=== PATIENT | female | born 1985 | race Caucasian/White ===

== ENCOUNTER → 2020-03-16 08:11 | Outpatient (CLI) | payer OTHER, SELFPAY ==
[2020-03-15 18:04] VITALS: BMI 38.9
[2020-03-16 13:44] LABS: Amphetamine Urine VISTA NEGATIVE (<1000 ng/mL); Barbiturate Urine VISTA NEGATIVE (< 200 ng/mL); Benzodiazepine Urine VISTA NEGATIVE (< 200 ng/mL); Cocaine Urine VISTA NEGATIVE (< 300 ng/mL); Ecstacy Urine VISTA NEGATIVE (< 500 ng/mL); Methadone Urine VISTA NEGATIVE (< 300 ng/mL); PCP Urine VISTA NEGATIVE (< 25 ng/mL); THC Urine VISTA NEGATIVE (< 50 ng/mL); Vista UDS pH Range 5
== END ==
PROVIDERS: PCP Internal Medicine; Referring Provider Internal Medicine; Visit Provider Internal Medicine
DX: F90.9 Attention-deficit hyperactivity disorder, unspecified type (principal)
CPT/HCPCS: 80307

== ENCOUNTER 2020-10-12 05:48 | Day surgery (SDC) | payer OTHER, SELFPAY ==
[2020-03-15 18:04] VITALS: BMI 38.9
[2020-10-12 06:13] LABS: Internal QC Validated? YES +Cl - CLEAR BKGD; Pregnancy, Urine Negative Negative
[2020-10-12 06:15] VITALS: BP 125/71; PULSE 98; RESP 16; TEMP 36.4; O2SAT 99; BMI 38.9
[2020-10-12] MEDS: Lactated Ringers 1,000 ML 100 ML IV (06:26)
--- NOTE | 2020-10-12 07:30 | LIP_PTH ---
[facility]: [facility] [place] U#:[id number] AGE/SX: 35/F ROOM: RE10/12/[address]: Dr. Alejandro Delgado MD : 1985 BED: DIS: 10/12/2020 SPEC #: [id number] RECD: 10/12/20 12:43 STATUS: ERESE TO #: [id number] MERLY: 10/12/20 07:[address]: Alejandro Delgado DEPT: SURGICAL PATHOLOGY RECD BY: Allen Barclay ENTERED: 10/12/20 13:51 SP TYPE: LIPOMA OTHR DR: Dr. Pedro Pablo Mark MD Tissues: Soft tissues, NOS Procedures: Surgery Specimen Level III HEADER OPERATION: Excision tumor, soft tissue face/scalp, neck PRE-OP DIAGNOSIS: Benign lipomatous neoplasm of skin and subcutaneous tissue of head, face and neck TISSUE SUBMITTED: Lipoma of neck MICROSCOPIC DIAGNOSIS Lipoma of neck, excision: Mature adipose tissue, consistent with lipoma. See comment. KATRINA:keyur 10/16/2020 COMMENT Fragments of skeletal muscle tissue are also noted adjacent to the lesion. MICROSCOPIC DESCRIPTION Slides are reviewed. GROSS DESCRIPTION Received in fixative is one container labeled with the patient's name and designated lipoma of neck. The specimen consists of an irregular piece of adipose tissue measuring 8.5 x 5.5 x 3 cm. The external surface is inked. Sections reveal yellow adipose cut surfaces without areas of hemorrhage, necrosis or cystic degeneration. Catalogue Maker sections are submitted in four cassettes. / KATRINA:keyur 10/12/20 TC:1 CPT: 57721
[2020-10-12] MEDS: Lidocaine 1% /Epi 1:100 (20ml) 20 ML Vial (08:30)
[2020-10-12] MEDS: Bacitracin 500 UNITS/GM PACKET (08:45)
--- NOTE | 2020-10-12 08:52 | PCM.OPRPT ---
Problems Associated Problem List Diagnoses (1) Lipoma of neck: Report of Operation Date of Procedure: 10/12/20 Pre-Operative Diagnosis: Lipoma left posterior neck Post-Operative Diagnosis: Same Surgery/Procedure Performed:: Excision of lipoma left posterior neck extending deep to trapezius and sternocleidomastoid muscles Description of Surgical Findings:: Rae is a 35-year-old female who presents with a an uncomfortable large lipoma of the left posterior neck. She was desirous of removal for relief and this was offered given the large size of the lesion although a benign lipoma was chiefly suspected. The risks, alternatives, potential complications, and benefits were discussed at length and any questions answered to the patient and/or caregiver's satisfaction. Witnessed informed consent was obtained in the office, and the patient and/or caregiver was agreeable to proceed. Procedure went as follows: The patient was then applied the preoperative holding and the left neck site marked in accordance with the chart notes, patient history, and exam. The patient was then brought to the operating room and local anesthetic of 1% lidocaine with 100,000 epinephrine was then injected of the planned incision site for a total of 10 mL. The patient was then positioned in the incisional site prepped and draped in usual sterile fashion. Using a 15 blade scalpel, a 4 cm incision was then made overlying the palpable mass. The platysma was then sharply transected and the wound edges cauterized with bipolar cautery for hemostasis. The posterior branches of the greater auricular nerve were identified and preserved. Dissection deep revealed a large lipoma within a fibrous capsule extending posterior to the sternocleidomastoid and deep to the trapezius muscle. This was then dissected free using a combination of bipolar cautery and blunt finger dissection revealing a very large 6 x 6 x 10 cm lipoma. Given the large size this was somewhat of a challenge to deliver through the 4 cm skin incision however with gentle retraction and external impression this was able to be delivered through the incision where bipolar cautery was used to free it from its fibrous attachments to the trapezius muscle posteriorly. The specimen was then sent for pathologic evaluation. Minimal bleeding from the wound site was then noted and this was then closed deeply with interrupted 3-0 Vicryl sutures followed by running 5-0 Monocryl suture to close the skin wound. This completed the procedure and the patient was returned to recovery having tolerated the procedure well. Surgeon: Alejandro Delgado Type of Anesthesia: Local Specimen's removed: lipoma neck Drains: none Estimated Blood Loss (mL): 5 mL Fluids Replaced: 0 mL Grafts/Implants Used: none Complications none Admit VTE Documentation VTE Present on Admission: No VTE Mechan Device Prophylaxis: None VTE Pharm Prophylaxis ordered?: No Reason prophylaxis not ordered:: Procedure Not Indicated
--- NOTE | 2020-10-12 08:58 | PCM.DC ---
Discharge Instructions Diet Discharge Diet: No restrictions Activity Discharge Activity: Return to Normal Activity May shower in (days): 2 Weight Bearing Status: Weight bearing as tolerated Dressing / Incision Call your doctor if your incision/area has: Increased Pain/ Swelling and Increased Redness Call your doctor if you observe: Fever of 101 or Higher and Uncontrolled pain Follow Up Care Please Follow Up With: Alejandro Delgado MD When: 1 week Test Results: Test results from this visit will be discussed in further detail at your follow-up appointment, if applicable. Discharge Plan Admission Attending Provider: Alejandro Delgado Primary Care Provider: Pedro Pablo Mark Discharge Orders/Prescriptions Prescriptions: No Action valacyclovir 500 mg tablet 500 mg PO DAILY RF: 0 Mirena 20 mcg/24 hours (5 yrs) 52 mg intrauterine device 1 device intrauterine ONCE RF: 0 clobetasol 0.05 % cream 1 applic TOPICAL BID PRN (Reason: Psoriasis) 0 Days Qty: 60 RF: 1 paroxetine HCl [Paxil] 10 mg tablet 10 mg PO DAILY Qty: 90 RF: 3 Referrals / Follow Up: Pedro Pablo Mark MD [Primary Care Provider] - Disposition Discharge Orders: Discharge Patient (Routine); Ordered 10/12/20 Ordered By: Dr. Alejandro Delgado
[2020-10-12 09:31] VITALS: BP 125/71; BP 142/92; PULSE 99; RESP 16; TEMP 36.3; O2SAT 97
[2020-10-12 14:21] VITALS: BP 103/72; BP 108/62; BP 109/65; BP 110/59; BP 110/64; BP 111/68; BP 114/67; BP 116/76; BP 117/63; BP 118/70; BP 120/55; BP 120/68; BP 123/81; BP 128/93; O2SAT 95; O2SAT 96; O2SAT 97; O2SAT 98
== END 2020-10-12 09:20 ==
LOC: SDC 05:48 → AC 05:48
PROVIDERS: Anesthesiology; PCP Family Medicine; Referring Provider Otolaryngology; Visit Provider Otolaryngology
PROC: (CPT 21554; principal; 2020-10-12 07:15)
DX: D17.0 Benign lipomatous neoplasm of skin and subcutaneous tissue of head, face and neck (principal); Z87.891 Personal history of nicotine dependence; G47.30 Sleep apnea, unspecified; H91.90 Unspecified hearing loss, unspecified ear
CPT/HCPCS: 21554; 81025; 87426; 88304; C9803; J7120; A4216

== ENCOUNTER 2021-01-10 13:00 | Outpatient (RCR) | payer OTHER, SELFPAY ==
[2020-12-17 13:40] VITALS: BMI 38.9
== END 2021-01-15 23:59 ==
LOC: DC 13:00
PROVIDERS: PCP Family Medicine; Visit Provider Clinical Nurse Specialist
DX: E11.9 Type 2 diabetes mellitus without complications (principal)
CPT/HCPCS: 97802; G0108

== ENCOUNTER 2021-02-07 13:00 | Outpatient (RCR) | payer OTHER, SELFPAY ==
[2021-01-16 00:17] VITALS: BMI 38.9
== END 2021-02-14 23:59 ==
LOC: DC 13:00
PROVIDERS: PCP Internal Medicine; Visit Provider Clinical Nurse Specialist
DX: E11.9 Type 2 diabetes mellitus without complications (principal)
CPT/HCPCS: 97803; G0108

== ENCOUNTER → 2021-02-22 08:48 | Outpatient (CLI) | payer OTHER, SELFPAY ==
[2021-02-22 12:55] LABS: Vitamin B12 > 2000 pg/mL (211-911)
[2021-02-22 12:59] LABS: ALB/GLOB Ratio 0.8 RATIO (0.9-2.4); AST(SGOT) 37 U/L (15-37); Alanine Aminotransfer ALT/SGPT 59 U/L (13-56); Albumin, Serum 3.4 g/dL (3.2-5.0); Alkaline Phosphatase 126 U/L (45-117); Anion Gap 5 (5-15); BUN 9 mg/dL (7-18); BUN/Creat Ratio 14.4 RATIO (10-20); Calcium,Total 8.4 mg/dL (8.5-10.1); Chloride 109 mmol/L (98-107); Cholesterol 123 mg/dL (200); Creatinine, Serum 0.62 mg/dL (0.55-1.02); EST Glomerular Filtration Rate 115 mL/min (>60); Est Glom Filt Rate - Afr Amer 139 mL/min (>60); Ferritin 214 ng/mL (8-252); Glucose 90 mg/dL (74-106); High Density Lipoprotein 28 mg/dL; Potassium 3.8 mmol/L (3.5-5.1); Protein, Total 7.4 g/dL (6.4-8.2); Sodium Level 141 mmol/L (136-145); Thyroid Stim Hormone (TSH) 2.61 uIU/mL (0.358-3.74); Triglycerides 128 mg/dL; Very Low Density Lipoprotein 26 mg/dL (5-40)
[2021-02-23 10:11] LABS: Thyroid Peroxidase AB 17 IU/mL (0-34)
== END ==
PROVIDERS: Internal Medicine Endocrinology, Diabetes & Metabolism; PCP Internal Medicine; Referring Provider Internal Medicine; Visit Provider Internal Medicine
DX: E11.65 Type 2 diabetes mellitus with hyperglycemia (principal)
CPT/HCPCS: 36415; 80053; 80061; 82607; 82728; 84443; 86376

== ENCOUNTER → 2021-02-25 15:33 | Outpatient (CLI) | payer OTHER, SELFPAY | PROVIDERS: PCP Internal Medicine; Visit Provider Physician Assistant | DX: U07.1 COVID-19 (principal) | CPT/HCPCS: 87635; U0005; U0003 ==

== ENCOUNTER 2021-03-21 09:30 | Outpatient (RCR) | payer OTHER, SELFPAY ==
[2021-02-15 00:13] VITALS: BMI 38.9
== END 2021-04-16 23:59 ==
LOC: DC 09:30
PROVIDERS: PCP Internal Medicine; Visit Provider Clinical Nurse Specialist
DX: E11.9 Type 2 diabetes mellitus without complications (principal)
CPT/HCPCS: G0109

== ENCOUNTER 2021-07-04 13:22 | Outpatient (RCR) | payer OTHER, SELFPAY ==
[2021-04-17 00:07] VITALS: BMI 38.9
== END 2021-07-15 23:59 ==
LOC: DC 13:22
PROVIDERS: PCP Internal Medicine; Visit Provider Clinical Nurse Specialist
DX: E11.9 Type 2 diabetes mellitus without complications (principal)
CPT/HCPCS: G0109

== ENCOUNTER 2021-09-19 12:05 | Outpatient (RCR) | payer OTHER, SELFPAY ==
[2021-07-16 00:08] VITALS: BMI 38.9
== END 2021-10-15 23:59 ==
LOC: DC 12:05
PROVIDERS: PCP Internal Medicine; Visit Provider Clinical Nurse Specialist
DX: E11.9 Type 2 diabetes mellitus without complications (principal)
CPT/HCPCS: G0109

== ENCOUNTER → 2022-12-17 | Outpatient (CLI) | payer BC, SELFPAY ==
[2022-12-17 16:51] LABS: Bacteria 0 SEEN /hpf (None Seen); Mucous, Urine 0 SEEN /hpf (<or=2+); Red Blood Cells-Urine 0 SEEN /hpf (0-5); Squamous Epithelial Cells - UA 0 SEEN /hpf (5-10); White Blood Cells 0 SEEN /hpf (0-5)
[2022-12-17 17:34] LABS: Color, Urine Straw (Yellow); Glucose, Dipstick Normal (Normal); Ketone-Dipstick Negative (Negative); Leukocyte Esterase-Dipstick Negative /ul (Negative); Nitrite-Dipstick Negative (Negative); Occult Blood-Urine Negative /ul (Negative); Protein-Dipstick Negative (Negative); Urine Bilirubin Dipstick Negative (Negative); Urine Clarity Clear (Clear); Urine Urobilinogen Normal (Normal)
== END | disposition home or self-care (01) ==
PROVIDERS: PCP Internal Medicine; Visit Provider Physician Assistant
DX: R10.9 Unspecified abdominal pain (principal)
CPT/HCPCS: 81001; 87086

== ENCOUNTER → 2023-01-13 | Outpatient (CLI) | payer BC, SELFPAY ==
[2023-01-13 15:18] LABS: Absolute Lymphocyte Count 2.67 X10^3/uL (0.83-4.51); Absolute Neutrophil Count 7.7 X10^3/uL (2.0-7.7); Basophil# 0.08 X10^3/uL; Basophil% 0.7 % (0-1); Eosinophil# 0.25 X10^3/uL; Eosinophils% 2.2 % (0-5); Hematocrit 41.9 % (37-47); Hemoglobin 13.8 g/dL (12.0-15.0); Lymphocyte # 2.67 X10^3/ul (0.83-4.51); Lymphocyte % 23.7 % (19-41); Mean Corp Hgb Conc 32.9 g/dL (32-36); Mean Corpuscular Hgb 29.4 pg (27.0-32.0); Mean Corpuscular Volume 89.1 fL (81-99); Mean Platelet Vol. 10.1 fl (6.2-12.0); Monocyte# 0.58 X10^3/uL; Monocyte% 5.1 % (0-10); NRBC Flagged by Analyzer 0 % (0-5); Neutrophil # 7.65 X10^3/uL (2.7-7.7); Neutrophil % 67.9 % (47-70); Platelet Count 304 K/mm3 (150-450); RBC Distribution Width CV 13.1 % (11.6-14.6); RBC Distribution Width SD 42.9 fl (35.1-43.9); White Blood Count 11.3 K/mm3 (4.4-11.0)
[2023-01-13 16:04] LABS: ALB/GLOB Ratio 0.9 RATIO (0.9-2.4); AST(SGOT) 20 U/L (15-37); Alanine Aminotransfer ALT/SGPT 31 U/L (13-56); Albumin, Serum 3.5 g/dL (3.2-5.0); Alkaline Phosphatase 123 U/L (45-117); Anion Gap 5 (5-15); BUN 11 mg/dL (7-18); BUN/Creat Ratio 12.7 RATIO (10-20); Calcium,Total 8.5 mg/dL (8.5-10.1); Chloride 109 mmol/L (98-107); Creatinine, Serum 0.87 mg/dL (0.55-1.02); EST Glomerular Filtration Rate 78 mL/min (>60); Est Glom Filt Rate - Afr Amer 94 mL/min (>60); Globulin 3.7 g/dL (2.2-4.2); Glucose 162 mg/dL (74-106); Potassium 3.8 mmol/L (3.5-5.1); Protein, Total 7.2 g/dL (6.4-8.2); Sodium Level 139 mmol/L (136-145); Thyroid Stim Hormone (TSH) 2.83 uIU/mL (0.358-3.74)
[2023-01-13 16:10] LABS: Microalbumin,Random Urine 5.4 mg/L (NO RANGE EST.); Microalbumin:Creatinine Ratio 3.5 mg/g CRE (<30 mg/g CRE)
[2023-01-13 16:26] LABS: Cholesterol 185 mg/dL (200); High Density Lipoprotein 32 mg/dL; Triglycerides 303 mg/dL; Very Low Density Lipoprotein 61 mg/dL (5-40); Vitamin B12 417 pg/mL (211-911)
== END | disposition home or self-care (01) ==
LOC: BIMLAB 11:59
PROVIDERS: Nurse Practitioner Family; PCP Internal Medicine; Referring Provider Internal Medicine; Visit Provider Internal Medicine
DX: E11.65 Type 2 diabetes mellitus with hyperglycemia (principal); Z79.4 Long term (current) use of insulin
CPT/HCPCS: 36415; 80053; 80061; 82043; 82570; 82607; 84443; 85025